=== PATIENT | female | born 1985 | race Caucasian/White ===

== ENCOUNTER 2020-08-01 07:11 | Emergency (ER) | payer SELFPAY ==
[2020-08-01] VITALS (10 sets, daily range): BP systolic 99–145; BP diastolic 65–94; PULSE 66–104; RESP 20; TEMP 36.9; O2SAT 94–100
--- NOTE | ~2020-08-01 | CT_ITS ---
EXAMINATION: CT brain wo con DATE: 08/01/2020 08:02 INDICATION: Headache. TECHNIQUE: Computed tomography (CT) of the head was performed without intravenous contrast. The mA wa s adjusted according to patient size. Iterative reconstruction technique was employed. The dose-lengt h product was 605.33 mGy-cm. COMPARISON: None FINDINGS: There is no intracranial hemorrhage, acute infarction, or abnormal intracranial mass lesion . The ventricles are normal in size. The orbits are normal. There is mild mucosal thickening in the p aranasal sinuses. The mastoid air cells are normal. IMPRESSION: 1. Normal brain. Reviewed, dictated and finalized at location A. IMPRESSION: 1. Normal brain.
[2020-08-01 07:47] LABS: Basophils Percent Auto 0.6 % (0.2-1.2); Eosinophils Absolute Auto 0.2 K/mm3 (0-0.3); Eosinophils Percent Auto 2.6 % (0-4.4); Hematocrit 44.5 % (37.0-47.0); Hemoglobin 14.9 g/dL (12.0-15.0); Immature Granulocyte Absolute 0.01 K/mm3 (0.00-0.031); Immature Granulocyte Percent A 0.2 % (0-0.5); Lymphocytes Absolute Auto 2.25 K/mm3 (0.9-3.2); Lymphocytes Percent Auto 34.9 % (18.3-44.2); Mean Corpuscular HGB Conc 33.5 g/dl (32-36); Mean Corpuscular Hemoglobin 29.4 pg (26-34); Mean Corpuscular Volume 87.8 fl (80-100); Mean Platelet Volume 9.6 fl (7.4-10.4); Monocytes Absolute Auto 0.4 K/mm3 (0.1-0.6); Monocytes Percent Auto 5.9 % (2.6-8.5); Neutrophils Absolute Auto 3.6 K/mm3 (1.3-6.7); Neutrophils Percent Auto 55.8 % (45.5-73.1); Platelet Count Result 273 k/mm3 (150-375); Red Blood Count 5.07 M/mm3 (4.2-5.4); Red Cell Distribution Width 13.5 % (11.5-14.5); White Blood Count 6.5 K/mm3 (4.5-10.0)
[2020-08-01] MEDS: diphenhydrAMINE HCl INJ 50 MG/ML VIAL 25 MG IV PUSH (07:48)
[2020-08-01] MEDS: LACTATED RINGERS 1,000 ML 999 ML IV CONT ×2 (07:48→09:36)
[2020-08-01] MEDS: METOCLOPRAMIDE HCL INJ 10 MG/2 ML VIAL IV PUSH (07:49)
--- NOTE | 2020-08-01 07:55 | ED.HA ---
HPI - Headache General Chief Complaint: Headache Stated Complaint: headache Time Seen by Provider: 08/01/20 07:20 Source: patient Mode of arrival: ambulatory Limitations: no limitations History of Present Illness HPI Narrative: This is a 34 year old female who presents for evaluation of headache. She developed a headache on top of her head 4 days ago. Her headache has gradually worsen. She describes her pain has sharp and a hammer to her head . She has been taking BC powder for her pain without relief. Today she developed nausea and vomiting with her pain. She reports history of headache. The location is the same as her previous headaches, but this episode is more severe. Onset (ago): day(s) (4) Onset description: gradually Location: parietal Quality & Timing: sharp, constant, progressively worsening and different than previous headaches Exacerbating factors: light Associated symptoms: nausea and vomiting Treatments prior to arrival: other (bc powder) Related Data Home Medications Medication Instructions Recorded Confirmed Arthritis Strength BC Powder 08/01/20 Allergies Allergy/AdvReac Type Severity Reaction Status Date / Time cephalexin [From Keflex] Allergy Rash Verified 08/01/20 07:24 nitrofurantoin Allergy Unknown Verified 08/01/20 07:23 [From Macrobid] Penicillins Allergy Rash Verified 08/01/20 07:23 Review of Systems Review of Systems: All systems reviewed & are unremarkable except as noted in HPI and below Constitutional: Constitutional: Denies chills and Denies fever(s) Eyes: Eyes: Denies change in vision ENT: Denies sore throat Cardiovascular: Cardiovascular: Denies chest pain Respiratory: Respiratory: Denies cough and Denies dyspnea Gastrointestinal: Gastrointestinal: Denies abdominal pain, Reports nausea and Reports vomiting Neurologic: Reports headache(s) [facility] Past Medical History Medical History (Updated 08/01/20 @ 10:06 by Polina Tyson MD) Frequent headaches Surgical History Surgical History (Updated 08/01/20 @ 08:01 by Polina Tyson MD) No significant past surgical history Social History Social History (Updated 08/01/20 @ 08:01 by Polina Tyson MD) Smoking packs per day: 0.5 Smoking cigarettes per day: 10.0 Smoking status: Current every day smoker Substance use: never Exam Const: General: no acute distress and alert Orientation/consciousness: patient oriented x3 Eyes: Pupils: Equal, round and reactive pupils present EOM: EOMs intact bilaterally Neck: Neck: normal visual inspection Chest: Chest palpation & inspection: normal inspection of the chest and abnormal inspection of the chest Resp: Effort & Inspection: normal respiratory effort and no retractions Auscultation: clear to auscultation bilaterally Cardio: Rate: regular rate Rhythm: regular rhythm Heart sounds: no murmurs GI: GI Palp: Yes Soft to palpation, No Tenderness to palpation present (GI) and No Guarding due to palpation present (GI) Auscultation: normal bowel sounds Skin: General skin exam: normal color Rashes: no rashes Neuro: General: patient oriented x3, moves all extremities and CN's II-XI intact bilaterally Extrem: General: normal to inspection Psych: Mental Status: mental status grossly normal Affect: normal affect Course Reevaluation(s) Reevaluation #1: Patient states she feels much better. I discussed with patient CT is negative. She still reports headache. I discussed although labs dont appear to bacterial meningitis. REcommended LP to rule out SAH and other causes. I discussed that CT only rules out 90-95% or cases. She states she does not want to go through with it and she accepts risk of not ruling it out. Date: 08/01/20 Time: 10:03 Vital Signs Vital signs: Vital Signs Temperature 98.5 F 08/01/20 07:15 Pulse Rate 104 H 08/01/20 07:15 Respiratory Rate 20 08/01/20 07:15 Blood Pressure 131/94 H 08/01/20 07:15
[2020-08-01] MEDS: KETOROLAC 30 MG/ML VIAL (*BKC) IV PUSH (08:16)
[2020-08-01 08:20] LABS: Add Urine Microscopic? YES; Appearance Urine Cloudy (Clear); Bacteria Urine Trace /hpf; Bilirubin Urine Negative (Negative); Blood Urine Negative (Negative); Color Urine Yellow (Yellow); Glucose Urine UA Negative (Negative); Ketones Urine Negative (Negative); Leukocyte Esterase Ur Negative LEU/UL (Negative); Mucus Urine Moderate /lpf; Nitrate Urine Negative (Negative); Protein Urine Negative (Negative); RBC Urine 0-2 /hpf (0-2); Specific Grav Ur 1.016 (1.001-1.035); Squamous Epithelial Cell Urine Many /hpf (Few); Urobilinogen Urine Negative mg/dL (<2.0); WBC Urine 0-3 /hpf
[2020-08-01 08:52] LABS: Alanine Aminotransferase 13 U/L (4-35); Albumin Level 4.3 g/dL (3.5-5.1); Alkaline Phosphatase 44 U/L (38-126); Anion Gap 5 mmol/L (8-16); Aspartate Amino Transferase 20 U/L (14-36); Bilirubin,Total 0.8 mg/dL (0.2-1.3); Blood Urea Nitrogen 7 mg/dL (7-17); CRP < 0.5 mg/dL (<1.0); Calcium 8.8 mg/dL (8.4-10.2); Carbon Dioxide 27 mmol/L (22-30); Chloride 105 mmol/L (98-107); Estimated Glomerular Filt Rate > 60; Glucose 88 mg/dL (65-105); Sodium 137 mmol/L (137-145)
[2020-08-01] MEDS: ONDANSETRON INJ 4 MG/2 ML VIAL IV PUSH (09:36)
== END 2020-08-01 10:53 | disposition home or self-care (01) ==
PROVIDERS: Emergency Provider General Practice
DX: R51.9 Headache, unspecified (principal); F17.210 Nicotine dependence, cigarettes, uncomplicated
CPT/HCPCS: 36415; 70450; 80053; 81001; 81025; 85025; 86140; 96361; 96374; 96375; 99284; J1200; J1885; J2405; J2765; J7120

== ENCOUNTER 2024-12-26 04:58 | Emergency (ER) | payer OTHER, MEDICAID, SELFPAY ==
--- NOTE | ~2024-12-26 | XR_ITS ---
Examination: XR chest 2V Clinical History: cp Comparison: None Technique: PA and Lateral Findings: Cardiomediastinal silhouette normal size and configuration. Lungs clear. No acute bony abnormality. IMPRESSION: 1. No acute cardiopulmonary findings. Reviewed, dictated and finalized at location R.
--- OUTSIDE RECORDS SUMMARY | 2024-12-26 05:01 | XMS_ITS | Clinical Summary ---
Author Organization [facility] Address [address] [place] [address] Care Team Providers Care Brick Grader Name Role Phone Unavailable Primary Care Provider Unavailabl e Source Comments [facility],non-owned Affiliates and Associated Physician Practices is amultiple site organization consisting of ambulatory clinics and hospital sitesin [place], [place], [place] and [place]. This disclosure is being madepursuant to the Care Everywhere program and may not contain all information available regarding this patient. Last updated 17.[facility] Allergies Active Allergy Reactions Criticality Noted Date Comments Orphenadrine Urticaria Medium 03/13/2023 Microbial Antigen Rash Medium 03/13/2023 Penicillins Anaphylaxis High 03/13/2023 Social History Tobacco Use Types Packs/Day Years Used Date Smoking Tobacco: Every Day Cigarettes Smokeless Tobacco: Never Tobacco Cessation:Ready to Q uit: Not Asked; Counseling Given: Not Answered Alcohol Use Standard Drinks/Week Comments Not Currently 0 (1 standard drink = 0.6 oz pur e alcohol) Comments No Sex and Gender Information Value Date Recorded Sex Assigned at Not on file Legal Sex Female 11:34 AM LANDSCAPING MANAGER Gender Identity Not on file Sexual Orientation Not on file Last Filed Vital Signs Vital Sign Reading Time Taken Comments Blood Pressure 106/72 03/13/2023 11:36 AM LANDSCAPING MANAGER Pulse 99 03/13/2023 11:36 AM LANDSCAPING MANAGER Temperature 36.7 C (98 F) 03/13/2023 11:36 AM LANDSCAPING MANAGER Respiratory Rate 16 03/13/2023 11:36 AM LANDSCAPING MANAGER Oxygen Saturation 94% 03/13/2023 11:36 AM LANDSCAPING MANAGER Inhaled Oxygen Concentration - - Weight 96.2 kg (212 lb) 03/13/2023 11:36 AM LANDSCAPING MANAGER Height 160 cm (5' 3) 03/13/2023 11:36 AM LANDSCAPING MANAGER Body Mass Index 37.55 03/13/2023 11:36 AM LANDSCAPING MANAGER Plan of Treatment Health Maintenance Due Date Last Done Comments LIPID TESTING 1984 MAMMOGRAM 1984 HEPATITIS C SCREENING 10/10/2002 DTAP/TDAP/TD VACCINES (1 - Tdap) 10/15/2003 HEPATITIS B VACCINE (1 of 3 - 19+ 3-dose series) 10/15/2003 PNEUMOCOCCAL VACCINE (1 of 2 - PCV) 10/15/2003 PAP SMEAR 2005 HPV VACCINE (1 - 3-dose SCDM series) 10/15/2011 DEPRESSION SCREENING 04/05/2024 COVID-19 VACCINE (1 - 2023-2 5 season) 2024 INFLUENZA VACCINE (#1) 2024 ZOSTER VACCINE (1 of 2) 2034 HIV SCREENING Completed 03/13/2023 HIB VACCINE Aged Out No longer eligi ble based on patient's age to complete this topic MENINGOCOCCAL (Group B) VACC INE SHARED DECISION-MAKING Aged Out No longer eligibl e based on patient's age to complete this topic MENINGOCOCCAL GROUPS A/C/Y/W VACCINE Aged Out No longer eligible b ased on patient's age to complete this topic Procedures Procedure Name Priority Date/Time Associated Diagnosis Comments HIV-1 HIV-2 ANTIBODY + HIV P24 AG PANEL STAT 03/13/2023 1:54 PM LANDSCAPING MANAGER from Last 3 Months or Most Recently Relevant to Health Maintenance Results * HIV-1 HIV-2 ANTIBODY + HIV P24 AG PANEL (03/13/2023 1:54 PM LANDSCAPING MANAGER) HIV Antigen/Antibod y 1 & 2 Non-reacti ve Non-react morgan 03/13/2023 3:16 PM LANDSCAPING MANAGER [facility] Comment:No Laboratory eviden ce of HIV infection. Blood BLOOD SPECIMEN / Unknown Venipuncture / Unknown 03/13/2023 1:54 PM LANDSCAPING MANAGER 03/13/2023 2:20 PM LANDSCAPING MANAGER us Neal Leyva MD LAB - CHEMISTRY ORDERABLES Fi nal Result [facility] [address] [address], [place] [phone] from Last 3 Months or Most Recently Relevant to Health Maintenance
[2024-12-26 05:02] VITALS: BP 158/142; PULSE 110; RESP 18; TEMP 36.6; O2SAT 99
--- NOTE | 2024-12-26 05:11 | ECG_ITS ---
Test Date: 2024-12-26 05:17:00 Measurements Intervals [place] Rate: 80 P: 64 CO: 155 QRS: 35 QRSD: 80 T: 18 QT: 357 QTc: 413 Interpretive Statements SINUS RHYTHM WITHIN NORMAL LIMITS No previous ECG available for comparison Electronically Signed On 12-26-2024 12:28:59 CDT by Calvin Andujar M.D.
[2024-12-26 05:13] VITALS: PULSE 83; RESP 14; O2SAT 97; O2SAT 99
[2024-12-26 05:18] LABS: Hematocrit 44.0 % (37.0-47.0); Hemoglobin 14.5 g/dL (12.0-15.0); Immature Granulocyte Percent A 0.5 % (0-0.5); Lymphocytes Absolute Auto 3.26 K/mm3 (0.9-3.2); Mean Corpuscular HGB Conc 33.0 g/dl (32-36); Mean Corpuscular Hemoglobin 29.1 pg (26-34); Mean Corpuscular Volume 88.2 fl (80-100); Nucleated Red Blood Cells Absolute Auto 0.000 K/mm3 (0.0-0.012); Nucleated Red Blood Cells Perc 0.0 % (0.0-0.2); Platelet Count Result 334 k/mm3 (150-375); Red Blood Count 4.99 M/mm3 (4.2-5.4); White Blood Count 10.5 K/mm3 (4.5-10.0)
[2024-12-26] MEDS: KETOROLAC 15 MG/ML VIAL (*BKC) IV PUSH (05:29)
[2024-12-26] MEDS: DOXYCYCLINE HYCLATE 100 MG TABLET PO (05:29)
[2024-12-26 05:34] LABS: Alanine Aminotransferase 16 U/L (6-35); Albumin Level 4.3 g/dL (3.5-5.1); Alkaline Phosphatase 62 U/L (38-126); Anion Gap 6 mmol/L (4-12); Aspartate Amino Transferase 31 U/L (14-36); Bilirubin,Total 0.8 mg/dL (0.2-1.3); Blood Urea Nitrogen 8 mg/dL (7-17); Calcium 8.4 mg/dL (8.4-10.2); Carbon Dioxide 26 mmol/L (22-30); Chloride 103 mmol/L (98-107); Estimated CRCL calculation 94 ml/min; Estimated Glomerular Filt Rate > 60; Glucose 91 mg/dL (65-110); Potassium 3.8 mmol/L (3.4-5.0); Sodium 135 mmol/L (137-145); Total Protein 7.3 g/dL (6.3-8.2)
[2024-12-26 06:03] LABS: Influenza A QL RT-PCR Negative (Negative); Influenza B QL RT-PCR Negative (Negative); RSV RNA, RT-PCR Negative (Negative); SARS-CoV-2 RNA PCR Negative (Negative)
--- NOTE | 2024-12-26 06:32 | ED_ITS ---
HPI - URI/Sore Throat General Chief Complaint: Upper Respiratory Infection Stated Complaint: chest congestion and insect bite Time Seen by Provider: 12/26/24 05:02 History of Present Illness HPI Narrative: For the past few days patient has had a URI symptoms, congestion, cough, and body aches all over. She has also noticed some painful bumps in her left axilla Related Data Home Medications ?Medication ?Instructions ?Recorded ?Confirmed ?Last Taken ?Type Arthritis Strength BC Powder 08/01/20 Unknown Histor y Allergies Allergy/AdvReac Type Severity Reaction Status Date / Time cephalexin (From Keflex) Allergy Rash Verified 12/26/24 05:07 nitrofurantoin (From Allergy Unknown Verified 12/26/24 05:07 Macrobid) Penicillins Allergy Rash Verified 12/26/24 05:07 Review of Systems 2 Review of Systems: All systems reviewed & are unremarkable except as noted in HPI and below PMFSH Past Medical History Medical History (Updated 12/26/24 @ 06:35 by Mae Brasher MD) Frequent headaches Surgical History Surgical History (Updated 08/01/20 @ 08:01 by Polina Tyson MD) No significant past surgical history Social History Social History (Updated 08/01/20 @ 08:01 by Polina Tyson MD) Smoking packs per day: 0.5 Smoking cigarettes per day: 10.0 Smoking status: Current every day smoker Substance use: never Exam 2 Narrative: EXAMINATION OF ORGAN SYSTEMS/BODY AREAS: Constitutional: Vital signs per nursing GENERAL: Started crying when her blood pressure cuff went off HEAD: Normal with no signs of head trauma. EYES: EOMI, conjunctiva normal ENT: Hearing grossly intact LUNGS: Nonlabored breathing. Clear to auscultation bilaterally HEART: [Regular rate and rhythm] ABD: [Soft], [nontender to palpation] EXT: Normal range of motion SKIN: Several small folliculitis bumps left axilla NEURO: [Alert and oriented x 3. No gross focal sensory or strength deficits.] PSYCH: Some tearful affect Course Vital Signs Vital signs: Vital Signs Temperature 97.9 F 12/26/24 05:02 Pulse Rate 110 H 12/26/24 05:02 Respiratory Rate 18 12/26/24 05:02 Blood Pressure 158/142 H 12/26/24 05:02 Pulse Oximetry 99 12/26/24 05:02 Oxygen Delivery Room Air 12/26/24 05:02 Temperature 97.9 F 12/26/24 05:02 Pulse Rate 83 12/26/24 05:13 Respiratory Rate 14 12/26/24 05:13 Blood Pressure 158/142 H 12/26/24 05:02 Pulse Oximetry 97 12/26/24 05:13 Oxygen Delivery Room Air 12/26/24 05:13 MDM - URI/Sore Throat MDM Narrative Medical decision making narrative: Patient presents here with URI symptoms, body aches, and folliculitis left underarm. EKG - 12-Lead: Performed at 0517. Interpreted by me. [Sinus rhythm]. Rate 80. [Normal] axis. MS-interval [normal]. QRS duration [normal]. QTc [normal]. [No ST segment elevation or depression]. Flattened T- wave in lead 3 and V2. Impression: No EKG evidence of acute ischemia or dysrhythmia. Signs are negative, CBC and CMP are negative. Chest x-ray on my independent interpretation without obvious consolidation any pneumothorax Patient given Toradol for pain, on re-evaluation she does feel better. Findings discussed with patient. And I will start her on doxycycline for folliculitis have her follow-up to PCP with return precautions, patient agreeable to plan Lab Data 12/26/24 05:12 12/26/24 05:12 Labs: Lab Results 12/26/24 12/26/24 Range/Units 05:12 05:21 WBC 10.5 H (4.5-10.0) K/mm3 RBC 4.99 (4.2-5.4) M/mm3 Hgb 14.5 (12.0-15.0) g/dL Hct 44.0 (37.0-47.0) % MCV 88.2 (80-100) fl MCH 29.1 (26-34) pg MCHC 33.0 (32-36) g/dl RDW 13.8 (11.5-14.5) % Plt Count 334 (150-375) k/mm3 MPV 9.0 (7.4-10.4) fl Immature Gran % (Auto) 0.5 (0-0.5) % Neut % (Auto) 61.1 (45.5-73.1) % Lymph % (Auto) 30.9 (18.3-44.2) % [place] % (Auto) 4.7 (2.6-8.5) % Eos % (Auto) 2.2 (0-4.4) % Baso % (Auto) 0.6 (0.2-1.2) % Lymph # (Auto) 3.26 H (0.9-3.2) K/mm3 [place] # (Auto) 0.5 (0.1-0.6) K/mm3 Eos # (Auto) 0.2 (0-0.3) K/mm3 Baso # (Auto) 0.1 (0.0-0.1) K/mm3 Abs Immat Gran (auto) 0.05 H (0.00-0.031) K/mm3 Absolute Neuts (auto) 6.4 (1.3-6.7) K/mm3 Absolute Nucleated RBC 0.000 (0.0-0.012) K/mm3 Nucleated RBC % 0.0 (0.0-0.2) % Sodium 135 L (137-145) mmol/L Potassium 3.8 (3.4-5.0) mmol/L Chloride 103 (98-107) mmol/L Carbon Dioxide 26 (22-30) mmol/L Anion Gap 6 (4-12) mmol/L BUN 8 (7-17) mg/dL Creatinine 0.74 (0.7-1.0) mg/dL Estim Creat Clear Calc 94 ml/min Estimated GFR > 60 (59 - ) Glucose 91 (65-110) mg/dL Calcium 8.4 (8.4-10.2) mg/dL Total Bilirubin 0.8 (0.2-1.3) mg/dL AST 31 (14-36) U/L ALT 16 (6-35) U/L Alkaline Phosphatase 62 (38-126) U/L Total Protein 7.3 (6.3-8.2) g/dL Albumin 4.3 (3.5-5.1) g/dL Influenza A (RT-PCR) Negative (Negative) Influenza B (RT-PCR) Negative (Negative) RSV (RT-PCR) Negative (Negative) SARS-CoV-2 RNA (RT-PCR) Negative (Negative) Discharge Plan Discharge Clinical Impression: Upper respiratory infection, Folliculitis Patient Disposition: Home Condition: Stable Instructions: Antibiotic Form, Upper Respiratory Infection (ED), Folliculitis (ED) Additional Instructions: Please follow up with your doctor; take medications as prescribed, you can always return for any further issues. Patient Language: Hebrew Prescriptions: New doxycycline hyclate 100 mg capsule 100 mg PO Q12H 5 Days Qty: 10 0RF acetaminophen [Tylenol Extra Strength] 500 mg tablet 1,000 mg PO Q6H PRN (Reason: pain) Qty: 50 0RF ibuprofen 600 mg tablet 600 mg PO TID PRN (Reason: fever or pain) Qty: 30 0RF fluticasone propionate [Allergy Relief (fluticasone)] 50 mcg/actuation spray,suspension 1 spray intranasal DAILY Qty: 16 0RF Rx Instructions: administer into each nostril No Action Arthritis Strength BC Powder ondansetron 4 mg tablet,disintegrating 4 mg PO Q6H PRN (Reason: nausea and vomiting) Qty: 14 0RF [id number] [Fioricet] 50-300-40 mg capsule 1 cap PO Q8H PRN (Reason: pain) Qty: 14 0RF Follow-up/Referrals: Amilcar Tian MD [Physician, Family Practice] - 2 Days PHYSICIAN,CRAFT COORDINATOR [Primary Care Provider, Internal Medicine]
[2024-12-26 06:42] VITALS: BP 130/87; PULSE 68; RESP 15; O2SAT 98
== END 2024-12-26 06:44 | disposition home or self-care (01) ==
PROVIDERS: Emergency Provider Emergency Medicine
DX: J06.9 Acute upper respiratory infection, unspecified (principal); L73.9 Follicular disorder, unspecified; F17.210 Nicotine dependence, cigarettes, uncomplicated; Z20.822 Contact with and (suspected) exposure to COVID-19
CPT/HCPCS: 36415; 71046; 80053; 85025; 87637; 93005; 96374; 99284; A9270; J1885